=== PATIENT | male | born 1945 | race Caucasian/White ===

== ENCOUNTER 2022-12-10 07:59 | Inpatient (IN) | payer MEDICARE ==
[~2022-12-10] VITALS: Ht 170.2 cm; Wt 100.0 kg
[2022-12-10] MEDS ORDERED: normal saline 1000ML IV soln IV ONE ×3 (08:45→12:25)
[2022-12-10 09:31] LABS: APTT 35 SECONDS (22-32)
[2022-12-10 09:32] LABS: ALANINE AMINOTRANSFERASE 69 U/L (12-78); ALBUMIN 2.2 G/DL (3.4-5.0); ALBUMIN/GLOBULIN RATIO 0.6 (1.1-1.5); ALKALINE PHOSPHATASE 167 IU/L (46-116); ANION GAP 15 (8-16); BILIRUBIN,TOTAL 2.6 MG/DL (0.1-1.0); BLOOD UREA NITROGEN 21 MG/DL (7-18); BUN/CREATININE RATIO 11.8 (10.0-20.0); CALCIUM 8.1 MG/DL (8.5-10.1); CHLORIDE 97 MMOL/L (99-107); CREATININE 1.78 MG/DL (0.60-1.10); GLUCOSE 71 MG/DL (70-104); SODIUM 135 MMOL/L (135-145); TOTAL CARBON DIOXIDE 23.1 MMOL/L (24-32); TOTAL PROTEIN 5.6 G/DL (6.4-8.2); eGFR 37 ML/MIN
[2022-12-10 09:41] LABS: MAGNESIUM 1.1 MG/DL (1.5-2.4)
[2022-12-10 09:43] LABS: ASPARTATE AMINO TRANSFERASE 130 U/L (10-37); POTASSIUM 4.1 MMOL/L (3.5-5.1)
[2022-12-10 09:49] LABS: BASOPHILS % (AUTO) 0.2 % (0-1); EOSINOPHILS % (AUTO) 0.1 % (0-6); HEMATOCRIT 27.6 % (42.0-52.0); HEMOGLOBIN 9.4 g/dl (14.0-17.9); LYMPHOCYTES # (AUTO) 0.4 X10'3 (1.1-4.8); LYMPHOCYTES % (AUTO) 4.1 % (21-51); MEAN CORPUSCULAR HEMOGLOBIN 36.1 PG (27.0-31.0); MEAN CORPUSCULAR HGB CONC 34.1 g/dL (33.0-36.5); MEAN CORPUSCULAR VOLUME 105.9 FL (78-98); MEAN PLATELET VOLUME 9.3 FL (7.4-10.4); MONOCYTES # (AUTO) 0.8 X10'3 (0-0.9); MONOCYTES % (AUTO) 7.9 % (2-12); NEUTROPHILS # (AUTO) 9.1 X10'3 (1.8-7.7); NEUTROPHILS % (AUTO) 87.7 % (42-75); PLATELET COUNT 106 X10'3 (140-440); RED BLOOD COUNT 2.61 X10'6 (4.70-6.10); RED CELL DISTRIBUTION WIDTH 14.6 % (11.5-14.5); WHITE BLOOD COUNT 10.4 X10'3 (4.5-11.0)
[2022-12-10] MEDS ORDERED: CefTRIAXone 2gm/D5W 50ml BAG 50 ML IV ONE (10:05)
--- NOTE | 2022-12-10 10:23 | NUR ---
IV FLUIDS STARTED.
[2022-12-10 10:34] LABS: CLARITY,URINE SLIGHTLY CLOUDY (Clear); COLOR,URINE AMBER (Yellow); LEUKOCYTE ESTERASE ,URINE NEGATIVE (Neg); NITRITES, URINE NEGATIVE (Neg); OCCULT BLOOD,URINE NEGATIVE (Neg); PROTEIN,URINE NEGATIVE (Neg)
[2022-12-10 10:38] LABS: GLUCOSE, URINE NEGATIVE (Neg); KETONES,URINE TRACE mg/dl (Neg)
[2022-12-10 10:48] LABS: UA COLLECTION TYPE STRAIGHT CATH
[2022-12-10 10:56] LABS: BACTERIA,URINE NONE SEEN /HPF (Neg); RBC,URINE NONE SEEN /HPF (0-2); SQUAMOUS EPITHELIAL CELL,UR NONE SEEN /LPF (FEW); WBC,URINE 0-4 /HPF (0-4)
[2022-12-10 10:57] LABS: HYALINE CASTS 0-3 /LPF (NEGATIVE)
[2022-12-10] MEDS ORDERED: amiodarone/D5 360MG/200ML BAG 200 ML IV SCH (11:25)
[2022-12-10] MEDS ORDERED: amiodarone 150mg/dext, iso-os 100 ML IV ONE (11:25)
[2022-12-10 11:31] LABS: OCCULT BLOOD STOOL POSITIVE (Neg)
--- NOTE | 2022-12-10 11:47 | NUR ---
PAGED RT AT THIS TIME.
--- NOTE | 2022-12-10 11:55 | NUR ---
RN NOTIFIED DR JIMÉNEZ THAT PT VS HR 88-135 AND BP 104/57. ORDERS TO HOLD AMIODARONE DRIP RIGHT NOW.
[2022-12-10 12:04] LABS: ABG BASE EXCESS -5.6 mmol/L (-2.0-2.0); ABG HCO3 17.9 mmol/L (22.0-26.0); ABG OXYGEN SATURATION 94.8 % (94-97); ABG PCO2 (T) 27.4 mmHg (35.0-48.0); ABG PO2 (T) 80.7 mmHg (75.0-100.0); ALLEN'S TEST POSITIVE; FCOHb 0.2 % (0.0-3.9); FMetHb 0.1 % (0.0-1.5); FO2Hb 94.5 % (94-97); PATIENT TEMPERATURE 36.7; TOTAL HEMOGLOBIN 8.6 G/dl (14.0-17.9)
--- NOTE | 2022-12-10 12:09 | NUR ---
RN NOTIFIED OF CRITICAL LAB VALUE
[2022-12-10] MEDS ORDERED: thiamine 100mg/ml 2ml inj. IV ONE (12:10)
--- NOTE | 2022-12-10 12:10 | NUR ---
JEN HICKS TOOK CRITICAL LAB LACTIC 5.[address] OHN. WATKINS AWARE. RN WILL CONT TO MONITOR.
--- NOTE | 2022-12-10 12:23 | NUR ---
RN NOTIFIED DR JIMÉNEZ THAT HR IS 91. PER DR JIMÉNEZ CONTINUE TO HOLD AMIODARONE DRIP.
[2022-12-10] MEDS ORDERED: mag hydrox/Alum hydrox/simeth 30ml oral suspension PO PRN (12:30)
[2022-12-10] MEDS ORDERED: ondansetron/PF 4mg/2ml inj IV PRN (12:30)
[2022-12-10] MEDS ORDERED: morphine 2 MG/ML inj. syringe IV PRN ×2 (12:30)
[2022-12-10] MEDS ORDERED: magnesium hydroxide 30ml (MOM) UD suspension PO PRN (12:30)
[2022-12-10] MEDS ORDERED: acetaminophen 325mg tablet PO PRN ×2 (12:30)
--- NOTE | 2022-12-10 12:31 | NUR ---
RN NOTIFIED DR JIMÉNEZ THAT PT RECD 4 L TOTAL OF NS AND HR 91 BP 100/63. DR JIMÉNEZ ORD 2 ADDITIONAL LITERS OF NS. PT HAS HX OF CHF. NO CRACKLES NOTED FOR LUNGS SOUNDS. RN WILL ADMIN 2 ADDITIONAL LITERS.
--- NOTE | 2022-12-10 13:10 | NUR ---
PT SLEEPING AT THIS TIME ,NO DISTRESS NOTED,WILL CONT TO MONITOR.
--- NOTE | 2022-12-10 13:48 | NUR ---
PT RESTING IN BED. NO STATUS CHG.
[2022-12-10] MEDS ORDERED: SPIR25TA5 PO (14:50)
[2022-12-10] MEDS ORDERED: PREG50CA64 PO (14:50)
[2022-12-10] MEDS ORDERED: FOLI0.8C PO (14:50)
[2022-12-10] MEDS ORDERED: HYDR-3964 PO (14:50)
[2022-12-10] MEDS ORDERED: VITA-268 PO (14:50)
[2022-12-10] MEDS ORDERED: FLUD0.1T PO (14:50)
[2022-12-10] MEDS ORDERED: PANT40TA54 PO (14:50)
[2022-12-10] MEDS ORDERED: FURO40TA4 PO (14:50)
[2022-12-10] MEDS ORDERED: HYDR-4318 PO (14:50)
[2022-12-10] MEDS ORDERED: METO-395 PO (14:50)
[2022-12-10] MEDS ORDERED: POTASSIUM CL 10% PO (14:50)
[2022-12-10] MEDS ORDERED: ALLO300T8 PO (14:50)
[2022-12-10] MEDS ORDERED: APIX5TAB3 PO (14:57)
[2022-12-10] MEDS: normal saline 1000ml 1,000 ML IV SCH (17:20)
--- NOTE | 2022-12-10 17:25 | NUR ---
ECHO AT BEDSIDE
[2022-12-10] MEDS: HYDROcodone/acetaminophen 5mg/325mg tablet PO PRN (18:57)
[2022-12-10] MEDS: docusate sod 100mg capsule PO SCH (20:00)
--- NOTE | 2022-12-10 21:05 | NUR ---
spoke with dr. Irvin regarding gram stain results (documented in critical lab) and hypotension. Informed him that I was told in report to continue to hold the amiodorone per dr. Tuttle, pt. is tachycardic rate 100-130's. informed he will take care of it, no new orders at this time.
[2022-12-10] MEDS ORDERED: magnesium 4gm in 100ml NS 100 ML IV PRN (21:35)
[2022-12-10] MEDS ORDERED: potassium Cl 40MEQ/1/2NS 520ml 520 ML IV PRN (21:35)
[2022-12-10] MEDS ORDERED: potassium Cl 20 mEq SR tablet PO PRN ×2 (21:35)
[2022-12-10] MEDS ORDERED: albumin (Human) 5% 250ml 250 ML IV ONE ×2 (22:00→23:15)
[2022-12-10 22:08] LABS: LIPASE 818 U/L (73-393)
[2022-12-10 22:10] LABS: CREATINE KINASE 86 U/L (39-308); PHOSPHORUS 3.2 MG/DL (2.3-4.5)
[2022-12-11] VITALS (9 sets, daily range): BP systolic 96–129; BP diastolic 61–77
[2022-12-11] MEDS: HYDROcodone/acetaminophen 5mg/325mg tablet PO PRN ×4 (00:23→19:14)
[2022-12-11] MEDS: piperacillin/tazo 4.5gm/100ml 50 ML IV SCH ×3 (00:24→21:59)
[2022-12-11] MEDS ORDERED: pantoprazole 40MG/NS 100ML BAG 100 ML IV SCH (01:00)
--- NOTE | 2022-12-11 06:33 | NUR ---
Pt is laying semi fowlers in bed, and is resting comfortably. Pt on RA. No s/s of distress, no c/o pain at this time. Pt getting morning labs drawn. BLL, call light within reach, frequently used items in reach, frequent rounding, software application tester socks on. Will continue to monitor.
--- NOTE | 2022-12-11 06:40 | NUR ---
report given to Jesi LI
[2022-12-11 07:13] LABS: BASOPHILS % (AUTO) 0.3 % (0-1); EOSINOPHILS # (AUTO) 0.2 X10'3 (0-0.9); HEMATOCRIT 24.3 % (42.0-52.0); HEMOGLOBIN 8.1 g/dl (14.0-17.9); LYMPHOCYTES # (AUTO) 0.6 X10'3 (1.1-4.8); LYMPHOCYTES % (AUTO) 9.9 % (21-51); MEAN CORPUSCULAR HEMOGLOBIN 35.9 PG (27.0-31.0); MEAN CORPUSCULAR HGB CONC 33.4 g/dL (33.0-36.5); MEAN CORPUSCULAR VOLUME 107.5 FL (78-98); MEAN PLATELET VOLUME 9.4 FL (7.4-10.4); MONOCYTES # (AUTO) 0.5 X10'3 (0-0.9); MONOCYTES % (AUTO) 7.6 % (2-12); NEUTROPHILS % (AUTO) 79.2 % (42-75); PLATELET COUNT 69 X10'3 (140-440); RED BLOOD COUNT 2.26 X10'6 (4.70-6.10); RED CELL DISTRIBUTION WIDTH 15.3 % (11.5-14.5); WHITE BLOOD COUNT 6.3 X10'3 (4.5-11.0)
[2022-12-11 07:25] LABS: ALANINE AMINOTRANSFERASE 56 U/L (12-78); ALBUMIN 2.1 G/DL (3.4-5.0); ALBUMIN/GLOBULIN RATIO 0.7 (1.1-1.5); ALKALINE PHOSPHATASE 120 IU/L (46-116); ANION GAP 11 (8-16); ASPARTATE AMINO TRANSFERASE 85 U/L (10-37); BLOOD UREA NITROGEN 21 MG/DL (7-18); BUN/CREATININE RATIO 16.3 (10.0-20.0); CALCIUM 6.9 MG/DL (8.5-10.1); CHLORIDE 104 MMOL/L (99-107); CREATININE 1.29 MG/DL (0.60-1.10); GLUCOSE 74 MG/DL (70-104); MAGNESIUM 1.2 MG/DL (1.5-2.4); POTASSIUM 3.6 MMOL/L (3.5-5.1); SODIUM 135 MMOL/L (135-145); eGFR 54 ML/MIN
[2022-12-11] MEDS ORDERED: enoxaparin 40mg/0.4ml syringe SUBCUT SCH (08:00)
[2022-12-11] MEDS: K and/or MAG REPLACEMENT MC SCH ×2 (08:00→20:00)
[2022-12-11] MEDS: docusate sod 100mg capsule PO SCH ×2 (08:00→20:00)
[2022-12-11] MEDS: normal saline 1000ml 1,000 ML IV SCH ×2 (08:30→18:30)
[2022-12-11] MEDS: nystatin 15 GM powder TP SCH ×2 (14:49→21:00)
[2022-12-11] MEDS ORDERED: LIDOcaine Viscous 15ml cup ONE (16:49)
[2022-12-11] MEDS ORDERED: MIDAZolam 1 MG/ML 5ML VIAL ONE (16:49)
[2022-12-11] MEDS ORDERED: fentaNYL/PF 50MCG/1 ML 2ML syringe ONE (16:49)
--- NOTE | 2022-12-11 18:13 | NUR ---
Problems reprioritized. Patient report given, questions answered & plan of care reviewed with Sonam RN.
[2022-12-11] MEDS: apixaban 5mg tablet PO SCH (19:14)
[2022-12-12] VITALS (9 sets, daily range): BP systolic 87–151; BP diastolic 52–90
[2022-12-12] MEDS: HYDROcodone/acetaminophen 5mg/325mg tablet PO PRN ×2 (03:38→17:46)
[2022-12-12] MEDS ORDERED: metoprolol tartrate 25mg tablet PO SCH (04:00)
--- NOTE | 2022-12-12 04:00 | NUR ---
1999 Pt. is awake alert oriented spoke with spouse at bedside. Pt. has bilateral hearing aids. Pt. is on tele monitor shows Afib at controlled rate. Peripheral IV in right arm intact. Pt. requests to sleep with head flat. 2199 Pt.able to request assistance to go to BR. gaits steady with home walker. 399 Later in the am Pt. c/o feeling cold and shivering, extra blankets applied HR increased to the 150's.sats 90% Pt. appeared out of breath when ambulating to BR the fourth time, portable 02 applied. Back to bed Pt. urge to rest in high fowlers position ; no flat position placed on 02 4L NC. MD of increased HR home med Metoprolol ordered and given. Pain med also given . Follow up HR improved to 100 with BP 133/78. No further c/o pain or sob 02 sats 98. Plan for home discharge pt will need home 02 for prn use. Pt. would like to use adult diapers at night instead of walking to BR. Pt. refuses BSC, external caths and urinals.
[2022-12-12 06:56] LABS: BASOPHILS % (AUTO) 0.5 % (0-1); EOSINOPHILS # (AUTO) 0.1 X10'3 (0-0.9); EOSINOPHILS % (AUTO) 1.9 % (0-6); HEMATOCRIT 24.4 % (42.0-52.0); HEMOGLOBIN 8.4 g/dl (14.0-17.9); LYMPHOCYTES # (AUTO) 0.3 X10'3 (1.1-4.8); LYMPHOCYTES % (AUTO) 4.8 % (21-51); MEAN CORPUSCULAR HEMOGLOBIN 36.4 PG (27.0-31.0); MEAN CORPUSCULAR HGB CONC 34.3 g/dL (33.0-36.5); MEAN CORPUSCULAR VOLUME 106.2 FL (78-98); MONOCYTES # (AUTO) 0.6 X10'3 (0-0.9); MONOCYTES % (AUTO) 10.4 % (2-12); NEUTROPHILS # (AUTO) 4.8 X10'3 (1.8-7.7); NEUTROPHILS % (AUTO) 82.4 % (42-75); PLATELET COUNT 76 X10'3 (140-440); RED CELL DISTRIBUTION WIDTH 15.4 % (11.5-14.5); WHITE BLOOD COUNT 5.8 X10'3 (4.5-11.0)
--- NOTE | 2022-12-12 07:00 | NUR ---
Patient in room PCU 3023. I have received report from JEN Birch and had the opportunity to ask questions and assume patient care.
[2022-12-12 07:19] LABS: ALANINE AMINOTRANSFERASE 53 U/L (12-78); ALBUMIN/GLOBULIN RATIO 0.7 (1.1-1.5); ALKALINE PHOSPHATASE 133 IU/L (46-116); ANION GAP 14 (8-16); ASPARTATE AMINO TRANSFERASE 64 U/L (10-37); BILIRUBIN,TOTAL 1.5 MG/DL (0.1-1.0); BLOOD UREA NITROGEN 17 MG/DL (7-18); BUN/CREATININE RATIO 12.7 (10.0-20.0); CALCIUM 7.2 MG/DL (8.5-10.1); CHLORIDE 103 MMOL/L (99-107); CREATININE 1.34 MG/DL (0.60-1.10); GLUCOSE 108 MG/DL (70-104); POTASSIUM 3.6 MMOL/L (3.5-5.1); SODIUM 134 MMOL/L (135-145); TOTAL CARBON DIOXIDE 17.4 MMOL/L (24-32); eGFR 51 ML/MIN
[2022-12-12 07:26] LABS: MAGNESIUM 0.9 MG/DL (1.5-2.4)
[2022-12-12] MEDS ORDERED: metoprolol succinate 25mg (24-HOUR) SR. Tablet PO PRN (08:10)
[2022-12-12] MEDS: K and/or MAG REPLACEMENT MC SCH ×2 (08:44→19:33)
[2022-12-12] MEDS: docusate sod 100mg capsule PO SCH ×2 (11:01→22:08)
[2022-12-12] MEDS: piperacillin/tazo 4.5gm/100ml 50 ML IV SCH ×2 (11:01→22:09)
[2022-12-12] MEDS: magnesium Cl slow-release 64mg tablet PO PRN ×2 (11:01→17:45)
[2022-12-12] MEDS: pantoprazole 40mg Tablet.DR PO SCH (11:02)
[2022-12-12] MEDS: apixaban 5mg tablet PO SCH ×2 (11:02→22:08)
[2022-12-12] MEDS: hydrocortisone 10mg tablet PO SCH (11:02)
[2022-12-12] MEDS: pregabalin 25mg capsule PO SCH (11:03)
[2022-12-12] MEDS: metoprolol succinate 25mg (24-HOUR) SR. Tablet PO SCH (11:03)
[2022-12-12] MEDS: allopurinol 300 MG tablet PO SCH (11:03)
[2022-12-12] MEDS: vitamin B comp w/Vit. C tab 1 TAB TABLET PO SCH (11:03)
[2022-12-12] MEDS: fludrocortisone acetate 0.1mg tablet PO SCH (11:03)
[2022-12-12] MEDS: nystatin 15 GM powder TP SCH ×2 (11:08→22:09)
[2022-12-12] MEDS ORDERED: Melatonin 3mg tablet PO SCH (21:00)
[2022-12-13 03:00] VITALS: BP 105/72
[2022-12-13] MEDS ORDERED: piperacillin/tazo 4.5gm/100ml 100 ML IV SCH (03:39)
--- NOTE | 2022-12-13 06:30 | NUR ---
Problems reprioritized. Patient report given, questions answered & plan of care reviewed with JEN Arora.
[2022-12-13 07:06] LABS: ALANINE AMINOTRANSFERASE 58 U/L (12-78); ALBUMIN/GLOBULIN RATIO 0.7 (1.1-1.5); ALKALINE PHOSPHATASE 120 IU/L (46-116); ANION GAP 11 (8-16); ASPARTATE AMINO TRANSFERASE 76 U/L (10-37); BILIRUBIN,TOTAL 1.3 MG/DL (0.1-1.0); BLOOD UREA NITROGEN 16 MG/DL (7-18); BUN/CREATININE RATIO 13.3 (10.0-20.0); CALCIUM 7.4 MG/DL (8.5-10.1); CHLORIDE 104 MMOL/L (99-107); EOSINOPHILS # (AUTO) 0.3 X10'3 (0-0.9); GLUCOSE 97 MG/DL (70-104); HEMOGLOBIN 8.4 g/dl (14.0-17.9); MAGNESIUM 1.2 MG/DL (1.5-2.4); MONOCYTES # (AUTO) 0.9 X10'3 (0-0.9); MONOCYTES % (AUTO) 16.5 % (2-12); NEUTROPHILS # (AUTO) 3.1 X10'3 (1.8-7.7); NEUTROPHILS % (AUTO) 58.9 % (42-75); POTASSIUM 3.5 MMOL/L (3.5-5.1); SODIUM 136 MMOL/L (135-145); TOTAL CARBON DIOXIDE 20.6 MMOL/L (24-32); WHITE BLOOD COUNT 5.2 X10'3 (4.5-11.0); eGFR 58 ML/MIN
[2022-12-13 07:09] LABS: BASOPHILS % (AUTO) 0.6 % (0-1); EOSINOPHILS % (AUTO) 5.5 % (0-6); HEMATOCRIT 24.7 % (42.0-52.0); LYMPHOCYTES % (AUTO) 18.5 % (21-51); MEAN CORPUSCULAR VOLUME 105.8 FL (78-98); MEAN PLATELET VOLUME 10.4 FL (7.4-10.4); PLATELET COUNT 77 X10'3 (140-440); RED BLOOD COUNT 2.34 X10'6 (4.70-6.10); RED CELL DISTRIBUTION WIDTH 15.5 % (11.5-14.5)
[2022-12-13] MEDS: K and/or MAG REPLACEMENT MC SCH (08:00)
[2022-12-13] MEDS ORDERED: LEVO750T68 PO (09:38)
[2022-12-13 09:40] LABS: NUCLEATED RED BLOOD CELLS 1 /100WBC (0-0); TOTAL CELLS COUNTED 100
[2022-12-13 09:41] LABS: PLATELET ESTIMATE DECREASED
[2022-12-13 09:42] LABS: POIKILOCYTOSIS FEW
[2022-12-13] MEDS: pregabalin 25mg capsule PO SCH (09:46)
[2022-12-13] MEDS: hydrocortisone 10mg tablet PO SCH (09:46)
[2022-12-13] MEDS: vitamin B comp w/Vit. C tab 1 TAB TABLET PO SCH (09:46)
[2022-12-13] MEDS: fludrocortisone acetate 0.1mg tablet PO SCH (09:46)
[2022-12-13] MEDS: apixaban 5mg tablet PO SCH (09:46)
[2022-12-13] MEDS: metoprolol succinate 25mg (24-HOUR) SR. Tablet PO SCH (09:46)
[2022-12-13] MEDS: docusate sod 100mg capsule PO SCH (09:46)
[2022-12-13] MEDS: pantoprazole 40mg Tablet.DR PO SCH (09:47)
[2022-12-13] MEDS: HYDROcodone/acetaminophen 5mg/325mg tablet PO PRN (09:47)
[2022-12-13] MEDS: allopurinol 300 MG tablet PO SCH (09:47)
[2022-12-13] MEDS: nystatin 15 GM powder TP SCH (09:49)
[2022-12-13] MEDS: magnesium Cl slow-release 64mg tablet PO PRN (09:50)
--- NOTE | 2022-12-13 10:18 | NUR ---
3023C-Alanna Smith has zosyn scheduled to run for 4hrs @1000 now, should we run it or D/C w/o. -Maite or [facility] x [phone].
== END 2022-12-13 11:54 | disposition home health service (06) | DRG 871 ==
LOC: ER 08:00 → ED HOLD 12:32 → EDBEDREQ 12-11 00:03 → PCU 3S 12-11 02:22
PROVIDERS: ADMIT Internal Medicine; ATTEND Internal Medicine
DX: A41.51 Sepsis due to Escherichia coli [E. coli] (principal); E43 Unspecified severe protein-calorie malnutrition; J18.9 Pneumonia, unspecified organism; N17.9 Acute kidney failure, unspecified; I11.0 Hypertensive heart disease with heart failure; D53.9 Nutritional anemia, unspecified; I95.9 Hypotension, unspecified; B96.1 Klebsiella pneumoniae [K. pneumoniae] as the cause of diseases classified elsewhere; I25.10 Atherosclerotic heart disease of native coronary artery without angina pectoris; E83.42 Hypomagnesemia; I27.81 Cor pulmonale (chronic); D50.9 Iron deficiency anemia, unspecified; K74.60 Unspecified cirrhosis of liver; E86.0 Dehydration; I48.91 Unspecified atrial fibrillation; I50.9 Heart failure, unspecified; G62.9 Polyneuropathy, unspecified; M10.9 Gout, unspecified; R26.2 Difficulty in walking, not elsewhere classified; Z79.01 Long term (current) use of anticoagulants; Z90.49 Acquired absence of other specified parts of digestive tract; Z68.34 Body mass index [BMI] 34.0-34.9, adult
CPT/HCPCS: 36415; 36600; 71045; 74176; 76700; 80053; 81001; 82272; 82550; 82803; 82948; 83605; 83690; 83735; 83880; 84100; 84145; 84443; 84484; 85007; 85018; 85025; 85610; 85730; 86885; 86900; 86901; 87040; 87077; 87081; 87186; 87502; 87503; 93005; 93306; 96361; 96374; 96375; 97116; 97162; 97530; 99291; A4615; A5200; A6212; C9113; G0378; J0696; J2250; J2543; J3010; J3411; J7030; J7040; P9045